=== PATIENT | female | born 1965 | race Caucasian/White ===

== ENCOUNTER 2024-08-12 06:23 | Day surgery (SDC) | payer OTHER, SELFPAY ==
[2024-08-04 10:32] VITALS: BMI 22.2
[2024-08-04 10:51] LABS: Hematocrit 39.8 % (37.0-47.0); Hemoglobin 13.5 g/dL (12.0-16.0); Mean Corp Hgb Conc. 33.9 g/dL (33.0-37.0); Mean Corpuscular Hgb 32.1 pg (27.0-31.0); Mean Corpuscular Volume 94.5 fL (81.0-99.0); Mean Platelet Volume 10.4 fL (7.4-10.4); Platelet Count 192 10^3/uL (130-400); Red Blood Cell Count 4.21 10^6/uL (4.20-5.40); White Blood Cell Count 5.6 10^3/uL (4.8-10.8)
[2024-08-05 08:27] VITALS: BMI 22.2
[2024-08-12] VITALS (10 sets, daily range): BP systolic 115–138; BP diastolic 64–80; BMI 22.2
[2024-08-12] MEDS: ANESTHETIC LOZENGE 1 LOZENGE PO (13:26)
== END 2024-08-12 14:57 | disposition home or self-care (01) ==
LOC: SDS 06:23
PROVIDERS: ATTENDING PHYSICIAN Otolaryngology; FAMILY PHYSICIAN Internal Medicine
DX: J34.2 Deviated nasal septum (principal)
CPT/HCPCS: 30520; 36415; 85027